=== PATIENT | male | born 1990 | race Caucasian/White ===

== ENCOUNTER 2019-03-27 22:29 | Emergency (ER) | payer MEDICAID, SELFPAY ==
[2019-03-27 22:30] VITALS: BP 155/91; PULSE 90; RESP 18; TEMP 36.8; O2SAT 97; BMI 29.7
--- NOTE | 2019-03-27 22:41 | CT_ITS ---
STUDY: CT ABDOMEN AND PELVIS WITHOUT CONTRAST REASON FOR EXAM: Male, 28 years old. Left flank pain radiating to groin. RADIATION DOSAGE (If Supplied By Facility): CTDIvol = ( 10.40 ) mGy, DLP = ( ) mGycm TECHNIQUE: Transaxial images were obtained from the dome of the diaphragm to the symphysis pubis without oral contrast, and without intravenous contrast. Sagittal and coronal images were reconstructed. Individualized dose optimization techniques were used for this CT. COMPARISON: None. FINDINGS: The visualized lung bases are unremarkable. The visualized portions of the heart are within normal limits. Normal liver. Normal gallbladder and extrahepatic biliary system. Normal spleen. Normal pancreas. Normal bilateral adrenal glands. Normal right kidney without hydronephrosis, renal or ureteral stones. Size of the left kidney with mild caliectasis and a prominent renal pelvis without ureteral distention, renal or ureteral stones. Normal visualized stomach. Normal small intestine. Normal colon. The appendix is visualized and appears normal. Normal abdominal aorta. Normal inferior vena cava. Normal retroperitoneum. Normal urinary bladder. Normal abdominal wall. Normal osseous structures. CT/Abdomen/Pelvis without Cont IMPRESSION: Mild caliectasis of the left kidney and a mildly dilated left renal pelvis without ureteral dilatation. Negative for renal, ureteral or bladder stones. Negative for perinephric or periureteral stranding. Findings suggest a mild UPJ deformity of the left kidney. Normal right kidney. Unremarkable urinary bladder. Otherwise normal abdomen and pelvic CT exam. Electronically Signed: Kallie Wheeler MD at 23:33 EST , Service support ,
--- NOTE | 2019-03-27 22:42 | ED.VIS.GEN ---
History of Present Illness Chief Complaint: Flank Pain Detail of Chief Complaint: Left lower quadrant pain Informant: Patient Onset: Today Context: Gradual Onset Timing: Waxes and wanes Current Severity: Mild Maximum Severity: Moderate Narrative: Patient presents with waxing and waning pain to the left lower quadrant for the past hour or so. He states when the pain got most severe he was slightly short of breath and had some tightness across the center of his chest. He has had mild recent cough and runny nose. He denies fever or chills. He denies nausea or vomiting. He said normal bowel movements and normal urination. Patient has a history of reflux disease and takes [id number] Prilosec. Patient denies any abdominal surgeries. - Past Medical History (1) GERD (gastroesophageal reflux disease) Status: Chronic Past Medical History - Allergies and Home Meds Allergies/Adverse Reactions: Allergies No Known Allergies Allergy (Verified 03/27/19 22:32) Primary Care Physician: Temi An MD [Primary Care Provider] - Prior records reviewed: Yes Lives: With Family Smoking Status: Never smoker Review of Systems General: Denies: Chills, Fever Eyes: Denies: Visual changes - bilaterally ENT: Denies: Bilateral ear pain Cardiovascular: Reports: Chest pain Respiratory: Reports: Dyspnea, Cough Gastrointestinal: Reports: Abdominal pain. Denies: Nausea, Vomiting, Diarrhea Genitourinary: Denies: Dysuria, Hematuria Musculoskeletal: Denies: Swelling, Extremity Pain Skin: Denies: Rash Neurological: Denies: Headache Hematologic: Denies: Easy bruising Allergy: Denies: Uticaria Physical Exam Vital Signs/Narrative: Vital Signs Temp Pulse Resp BP Pulse Ox 03/27/19 22:30 98.2 F 90 18 155/91 H 97 Inital Vital Signs reviewed: Yes General: Well nourished, Well developed Head: Normocephalic ENT: Moist mucous membranes Neck: Supple Cardiovascular: Regular rate, Regular rhythm Respiratory: No distress, CTA bilaterally, Chest tenderness - Mild tenderness of the lower sternum. Abdomen: Soft, Tender - Mild tenderness to palpation left lower quadrant. No guarding or rebound., Hypoactive bowel sounds. Negative for: Guarding, Rebound tenderness Back: CVA tenderness - Mild tenderness to the left CVA region. Extremities: Nontender Skin: Normal color, No rash Neurological: Alert, Oriented x3 Psychological: Normal affect Diagnostic/Tx/Re-eval Impressions Abdomen/Pelvis CT 03/27/19 22:41 IMPRESSION: Mild caliectasis of the left kidney and a mildly dilated left renal pelvis without ureteral dilatation. Negative for renal, ureteral or bladder stones. Negative for perinephric or periureteral stranding. Findings suggest a mild UPJ deformity of the left kidney. Normal right kidney. Unremarkable urinary bladder. Otherwise normal abdomen and pelvic CT exam. Electronically Signed: Kallie Wheeler MD at 23:33 EST , Service support , 03/27/19 22:41 Abdomen/Pelvis without Cont [CT] Stat 03/27/19 23:05 Chest PA and Lateral [RAD] Stat No acute disease per ED physician read. Laboratory Results 03/27/19 03/27/19 03/27/19 22:49 22:49 22:49 WBC 10.1 RBC 5.31 Hgb 16.0 Hct 47.7 MCV 89.8 MCH 30.1 MCHC 33.5 RDW Std Deviation 42.8 RDW Coeff of Ben 12.9 Plt Count 228 MPV 11.9 Immature Gran % (Auto) 0.400 Neut % (Auto) 67.4 Lymph % (Auto) 20.5 [place] % (Auto) 8.0 Eos % (Auto) 3.3 Baso % (Auto) 0.4 Absolute Neuts (auto) 6.8 Absolute Lymphs (auto) 2.06 Nucleated RBC % 0 Sodium 140 Potassium 3.7 Chloride 107 Carbon Dioxide 24.0 Anion Gap 9 BUN 13 Creatinine 1.15 Estim Creat Clear Calc 83.93 Est GFR (MDRD) Af Amer 98 Est GFR (MDRD) Non-Af 81 BUN/Creatinine Ratio 11.3 Glucose 91 Calcium 8.8 Urine Color Yellow Urine Clarity Clear Urine pH 6.0 Ur Specific [place] 1.015 Urine Protein 15 H Urine Glucose (UA) Normal Urine Ketones Negative Urine Occult Blood Negative Urine Nitrite Negative Urine Bilirubin Negative Urine Urobilinogen 1 H Ur Leukocyte Esterase Negative Urine RBC 0-5 SEEN Urine WBC 0 SEEN Ur Squamous Epith Cells 0-5 SEEN Urine Bacteria RARE Urine Mucus 0 SEEN - EKG Initial EKG Interpretation: Sinus Rhythm - Sinus 87 with no acute ischemia. - Medical Decision Making Patient was given Toradol and IV fluids. On repeat evaluation he is resting comfortably. Test results are discussed with patient and mother at bedside. At this time pain is improved. He now tells me that he has had pain along his left hip area for quite some time. Patient be given anti-inflammatories. I did discuss with him the changes noted to his left kidney on CAT scan, but concern is that this is more of a long-standing issue and not the cause of his acute pain. He will be given information for urology follow-up as needed. ED Disposition - Plan for ED Patient: Disposition: Home or Assisted Living Diagnosis: Left flank pain Instructions: FLANK PAIN, Uncertain Cause Prescriptions: Naproxen [Naprosyn] 500 mg PO BID PRN PRN #20 tablet PRN Reason: Pain Score 1-10/10 Referrals: Temi An MD [Primary Care Provider] - 1 Week if not improving Stevenson Guerrero MD [STAFF PHYSICIAN] - As Needed
--- NOTE | 2019-03-27 22:44 | EKG12_ITS ---
Test Reason : FLANK PAIN Blood Pressure : / mmHG Vent. Rate : 087 BPM Atrial Rate : 087 BPM P-R Int : 148 ms QRS Dur : 100 ms QT Int : 344 ms P-R-T Axes : 037 -23 -08 degrees QTc Int : 413 ms Normal sinus rhythm Minimal voltage criteria for LVH, may be normal variant Borderline ECG Confirmed by HAN ALARCON, RAZA ([id number]), visual effects editor MANDY CRESPO ([id number]) on 03/31/2019 11:58:24 AM Referred By: CHASITY Confirmed By:RAZA SHORT MD
[2019-03-27] MEDS: 0.9% Normal Saline 1,000 ML 150 ML IV (22:53)
[2019-03-27] MEDS: Ketorolac 30 MG/ML Syringe IV (22:54)
[2019-03-27 22:56] LABS: Mucous, Urine 0 SEEN /hpf (<or=2+); White Blood Cells 0 SEEN /hpf (0-5)
[2019-03-27 22:57] LABS: Absolute Lymphocyte Count 2.06 X10^3/uL (0.83-4.51); Absolute Neutrophil Count 6.8 X10^3/uL (2.0-7.7); Basophil# 0.04 X10^3/uL; Basophil% 0.4 % (0-1); Eosinophil# 0.33 X10^3/uL; Eosinophils% 3.3 % (0-5); Hematocrit 47.7 % (40-54); Lymphocyte # 2.06 X10^3/ul (4.0); Lymphocyte % 20.5 % (19-41); Mean Corp Hgb Conc 33.5 g/dL (32-36); Mean Corpuscular Hgb 30.1 pg (27.0-32.0); Mean Corpuscular Volume 89.8 fL (80-94); Mean Platelet Vol. 11.9 fl (6.2-12.0); NRBC Flagged by Analyzer 0 % (0-5); Neutrophil # 6.78 X10^3/uL (2.7-7.7); Neutrophil % 67.4 % (47-70); Platelet Count 228 K/mm3 (150-450); RBC Distribution Width CV 12.9 % (11.6-14.6); RBC Distribution Width SD 42.8 fl (35.1-43.9); Red Blood Count 5.31 M/mm3 (4.6-6.2); White Blood Count 10.1 K/mm3 (4.4-11.0)
[2019-03-27 22:58] LABS: Color, Urine Yellow (Yellow); Glucose, Dipstick Normal (Normal); Ketone-Dipstick Negative (Negative); Leukocyte Esterase-Dipstick Negative /ul (Negative); Nitrite-Dipstick Negative (Negative); Occult Blood-Urine Negative /ul (Negative); Protein-Dipstick 15 mg/dl (Negative); Specific Gravity, Urine 1.015 (1.002-1.030); Urine Bilirubin Dipstick Negative (Negative); Urine Clarity Clear (Clear); Urine Urobilinogen 1 mg/dl (Normal)
--- NOTE | 2019-03-27 23:05 | RAD_ITS ---
STUDY: X-RAY CHEST REASON FOR EXAM: Male, 28 years old. Shortness of breath, cough and left flank pain. TECHNIQUE: 2 views COMPARISON: Prior chest radiograph May 05, 2015 FINDINGS: The lungs are clear and expanded. There is no demonstrated pleural abnormality. Normal size heart. Normal mediastinum and gloria. Normal visualized pulmonary arteries. Normal visualized aortic arch and descending thoracic aorta. Normal visualized thoracic spine. Normal visualized ribs, clavicles, and shoulders. There is no demonstrated abnormality of the visualized soft tissue structures of the upper abdomen. RAD/Chest PA and Lateral IMPRESSION: Normal x-ray examination of the chest. Electronically Signed: Kallie Wheeler MD at 23:51 EST , Service support ,
[2019-03-27 23:09] LABS: Bacteria RARE /hpf (None Seen); Red Blood Cells-Urine 0-5 SEEN /hpf (0-5); Squamous Epithelial Cells - UA 0-5 SEEN /hpf (0-5)
[2019-03-27 23:14] LABS: Anion Gap 9 (5-15); BUN 13 mg/dL (7-18); BUN/Creat Ratio 11.3 RATIO (10-20); Calcium,Total 8.8 mg/dL (8.5-10.1); Chloride 107 mmol/L (98-107); Creatinine, Serum 1.15 mg/dL (0.70-1.30); EST Glomerular Filtration Rate 81 mL/min (>60); Est Glom Filt Rate - Afr Amer 98 mL/min (>60); Estimated Creatinine Clearance 83.93 ml/min; Glucose 91 mg/dL (74-106); Potassium 3.7 mmol/L (3.5-5.1); Sodium Level 140 mmol/L (136-145)
[2019-03-28 00:34] VITALS: RESP 14
== END 2019-03-28 00:35 | disposition home or self-care (01) ==
PROVIDERS: Emergency Provider Emergency Medicine; Family Provider Internal Medicine; PCP Internal Medicine
DX: R10.9 Unspecified abdominal pain (principal); K21.9 Gastro-esophageal reflux disease without esophagitis; Z79.899 Other long term (current) drug therapy
CPT/HCPCS: 71046; 74176; 80048; 81001; 85025; 93005; 96361; 96374; 99283; J7030; A4216

== ENCOUNTER 2020-03-06 04:41 | Emergency (ER) | payer MEDICAID, SELFPAY ==
[2020-03-06 04:42] VITALS: BP 172/92; PULSE 98; RESP 16; TEMP 36.6; O2SAT 97; BMI 29.0
--- NOTE | 2020-03-06 04:56 | ED.DCSUM_ITS ---
- ER Visit Summary Date of Service: 03/06/20 Chief Complaint: Possible overdose History of Present Illness: The patient is a 29 M who presents with a possible accidental overdose that occurred tonight. Patient states he woke up and was not sure if he took his Flomax last night. Patient states he took another dose of Flomax when he woke up. Patient states he has been feeling dizzy. Patient also admits to some pain in his left flank for the past month. Patient states it is worse with bending. Patient states he improves with Tylenol. Patient denies any fevers or chills. Patient denies any dysuria or hematuria. Physical Examination: Vital signs are stable. Patient is afebrile. Patient is in no acute distress. Oral mucosa is pink and moist. Neck is supple. Trachea is midline. There is no JVD noted. Heart was regular rate and rhythm. Lungs are clear and equal bilaterally. Abdomen is soft. Bowel sounds are normal. There is mild left upper quadrant and left flank tenderness. There is no rebound or guarding noted. Skin is warm dry. Cranial nerves II through XII are intact. There are no focal motor or sensory deficits noted. Extremities are intact. There is no calf tenderness or edema. Test Results: Urinalysis was obtained and was within normal limits. Emergency Department Course and Treatment: Patient was advised that an extra dose of Flomax is not dangerous. Patient was instructed to follow-up with his primary care physician in 5 to 7 days. Patient understood and was agreeable with the plan. All questions were answered. Disposition: Discharge home Impression: 1. Left flank pain 2. Accidental overdose This note was generated with [employer] dictation software. It may contain incorrect words, spelling, and punctuation that were not noted in review of the chart prior to signing ED Disposition - Plan for ED Patient: Disposition: Home or Assisted Living Diagnosis: Left flank pain, Accidental overdose Instructions: ED Flank Pain Uncertain Cause, ED Accidental Ingestion Nontoxic Adult Referrals: Temi An MD [Primary Care Provider] - 3-5 Days
[2020-03-06 05:12] LABS: Bacteria 0 SEEN /hpf (None Seen); Mucous, Urine 0 SEEN /hpf (<or=2+); Red Blood Cells-Urine 0 SEEN /hpf (0-5); Squamous Epithelial Cells - UA 0 SEEN /hpf (0-5); White Blood Cells 0 SEEN /hpf (0-5)
[2020-03-06 05:28] LABS: Color, Urine Straw (Yellow); Glucose, Dipstick Normal (Normal); Ketone-Dipstick Negative (Negative); Leukocyte Esterase-Dipstick Negative /ul (Negative); Nitrite-Dipstick Negative (Negative); Occult Blood-Urine Negative /ul (Negative); Protein-Dipstick Negative (Negative); Urine Bilirubin Dipstick Negative (Negative); Urine Clarity Sl. Cloudy (Clear); Urine Urobilinogen Normal (Normal)
[2020-03-06 06:06] VITALS: BP 135/68; PULSE 72; RESP 16; O2SAT 100
--- NOTE | 2020-03-06 06:07 | ED.RN ---
PT MENTIONS HE HAS LOTS OF ANXIETY. CARD GIVEN FOR 89 AND CRISIS. EMOTIONAL SUPPORT GIVEN.
== END 2020-03-06 06:07 | disposition home or self-care (01) ==
PROVIDERS: Emergency Provider Emergency Medicine; PCP Internal Medicine
DX: R10.9 Unspecified abdominal pain (principal); T44.6X1A Poisoning by alpha-adrenoreceptor antagonists, accidental (unintentional), initial encounter
CPT/HCPCS: 81001; 99282

== ENCOUNTER 2020-12-31 14:35 | Observation (INO) | payer MEDICAID, SELFPAY ==
[2020-12-31] VITALS (10 sets, daily range): BP systolic 127–166; BP diastolic 78–104; PULSE 71–101; RESP 16–20; TEMP 36.4–37.2; O2SAT 96–99; BMI 32.5; BMI 32.8
--- NOTE | 2020-12-31 15:19 | EKG12_ITS ---
Test Reason : CP Blood Pressure : / mmHG Vent. Rate : 102 BPM Atrial Rate : 102 BPM P-R Int : 138 ms QRS Dur : 098 ms QT Int : 326 ms P-R-T Axes : 000 147 194 degrees QTc Int : 424 ms Sinus tachycardia Indeterminate axis ST & T wave abnormality, consider inferior ischemia Abnormal ECG Confirmed by MICHELE ALARCON, JUJU ([id number]), editor trade journal ANKITA MARTINEZ ([id number]) on 01/04/2021 8:36:19 AM Referred By: STEPHANIE Confirmed By:JAMES BAUTISTA MD
--- NOTE | 2020-12-31 15:20 | ED.VIS.CHEST ---
HPI History of Present Illness Chief Complaint: Chest Pain Detail of Chief Complaint: Chest pain that started 3 days ago Informant: patient Onset/Context/Timing Current Severity: 08/07 Narrative Narrative: Patient presents to the emergency department chief complaint of chest pain and shortness of breath that started 3 days ago. Patient states that 3 days ago while at work he was pushing a car to another weighing and on the way back to the kitchen he thinks he may have passed out on top of the cart. He has been complaining of discomfort in the left chest that he describes as pressure-like. Patient states that yesterday he felt okay but the pain came back today. Patient states pain is worse with deep breath and movement. He has not had pain like this before. Patient seems to think the pain is worse with activity. No family history of heart disease. Patient has no history of PE or DVT. He denies recent travel or surgery. He denies fever or recent illness. Patient does have a slight dry cough x2 days however he does have history of allergies and he believes its related to seasonal allergies. Patient had a negative Covid test yesterday. Prior Similar Symptoms: No PFSH PFSH Medical History (Updated 12/31/20 @ 16:[address] Farzad Jade, DO) Kidney stones Home Medications NK 12/31/20 [History Last Taken Unknown] Allergy/AdvReac Type Severity Reaction Status Date / Time No Known Allergies Allergy Verified 12/31/20 15:19 Social History Smoking Status: Never smoker ROS ROS ED Review of Systems ROS Unobtainable: other Constitutional Constitutional ED: Reports lethargy; Denies chills, fever(s), sweats or weight loss Eyes Eyes: Denies blurry vision, change in vision or diplopia ENT ENT ED: Denies rhinorrhea or sore throat Cardiovascular Cardiovascular: Reports chest pain; Denies orthopnea or racing heartbeat Respiratory/Chest Respiratory/Chest: Reports cough, dyspnea and dyspnea on exertion; Denies orthopnea or sputum Gastrointestinal Gastrointestinal: Denies abdominal pain, diarrhea, nausea or vomiting Genitourinary Genitourinary ED: Denies dysuria, hematuria or urinary frequency Musculoskeletal Musculoskeletal: Denies arthralgias, back pain, myalgias or neck pain Integumentary Denies abscess, Abrasions or rash Neurologic Neurologic: Denies headache(s) or weakness Psychiatric Psychiatric: Denies anxiety, depression or suicidal thoughts Endocrine Endocrinology: Denies polydipsia, polyphagia or polyuria Hematologic/Lymphatic Hematologic/Lymphatic: Denies easy bleeding, easy bruising or lymphadenopathy Allergic/Immunologic Allergic/Immunologic ED: Denies mouth swelling, tongue swelling or urticaria EXAM Physical Exam Const Vital Signs: 12/31/20 14:35 12/31/20 15:32 12/31/20 15:33 Temperature 98.8 F Temperature Source Temporal Pulse Rate 101 H Respiratory Rate 20 H Respiratory Effort Normal Non-Labored Blood Pressure 166/99 H Blood Pressure Mean 121 Pulse Ox 99 98 Oxygen Delivery Method Room Air Room Air Positive well nourished and well developed General Appearance ED: well developed and NAD HEENT Reports TM's clear and moist mucous membranes normocephalic and atraumatic; Negative for trauma or tenderness Tympanic Membrane ED: Yes TM's clear Eyes PERRL and EOMs intact bilaterally General Eye ED: Negative for pale conjunctiva or scleral icterus Neck no lymphadenopathy, supple and no JVD General: Negative for tenderness Chest Wall Chest Narrative: Patient has tenderness palpation of the left anterior chest wall that seems to reproduce his pain. There is no ecchymosis or bruising noted. There is no soft tissue swelling. Chest: tenderness Resp normal respiratory effort and clear to auscultation bilaterally Effort and Inspection: Negative for respiratory distress or pain with movement Auscultation: Negative for rhonchi, wheezes or diminished lung sounds Cardio regular rate, regular rhythm, S1 normal heart sound, S2 normal heart sound and no murmurs Peripheral Pulses: pulses 2+ throughout GI normal to inspection, nondistended, normoactive bowel sounds, soft to palpation, non-tender, non-distended and no masses Back/Spine no CVA tenderness and no thoracic nor lumbar tenderness Extremity normal to inspection General Extremety ED: Negative for edema General Extremity: Negative for edema Neuro oriented x3, CN's II-XII intact bilaterally, no sensory deficits noted and gait normal Sensorium / Orientation: awake, alert, oriented to person, oriented to place and oriented to time Motor Exam: strength 5/5 throughout and strength abnormal Psych mental status grossly normal Skin no rashes or lesions noted and no wounds Heart Score History: Moderately Suspicious ECG: Nonspecific Repolarization Age: </= 45 years Risk Factors: 1 or 2 Risk Factors Troponin: </= Normal Limit Score: 3 MDM MDM MDM Narrative Medical decision making narrative: Case was discussed with photogrammetric stereo compiler on-call and he was able to review today's EKG as well as old EKG from 2019. It was recommended that patient be admitted for further work-up as he does have a markedly abnormal EKG. Patient had a normal D-dimer and normal sed rate as well as a normal troponin. Etiology of his chest pain is unclear however he does have Q waves in the lateral leads and there is concern he may have had an infarct within the last several days. Lab Data Attestation: I reviewed the patient's lab results. Labs: Laboratory Results - last 24 hr 12/31/20 12/31/20 12/31/20 15:26 15:26 15:26 WBC 6.3 RBC 5.22 Hgb 15.6 Hct 46.5 MCV 89.1 MCH 29.9 MCHC 33.5 RDW Std Deviation 40.8 RDW Coeff of Ben 12.4 Plt Count 228 MPV 11.2 Immature Gran % (Auto) 0.600 Neut % (Auto) 65.2 Lymph % (Auto) 22.2 [place] % (Auto) 7.7 Eos % (Auto) 3.8 Baso % (Auto) 0.5 Absolute Neuts (auto) 4.1 Absolute Lymphs (auto) 1.39 Nucleated RBC % 0 ESR 5 D-Dimer Quant (PE/DVT) 0.46 Sodium 137 Potassium 3.7 Chloride 105 Carbon Dioxide 28.0 Anion Gap 4 L BUN 9 Creatinine 0.97 Estim Creat Clear Calc 97.74 Est GFR (MDRD) Af Amer 118 Est GFR (MDRD) Non-Af 97 BUN/Creatinine Ratio 9.3 L Glucose 110 H Calcium 9.3 Troponin I High Sens 4 Radiography Chest X-Ray - ED: 1 View Diagnostic Testing: Radiology Impression Chest X-Ray 12/31/20 15:45 IMPRESSION: Normal x-ray examination of the chest. Electronically Signed: Pawel Beckman MD at 16:01 EDT Tel , Service support , 1 view chest x-ray obtained interpreted by myself as no acute disease process. Radiology in agreement. EKG Initial EKG: Comments: Sinus rhythm with a ventricular rate of 102 bpm with T wave inversions in lateral leads which are new when compared with prior Prior EKG tracings: available for review Prior: Changed Discharge Plan Dx/Rx/DC Orders Clinical Impression: Chest pain, Abnormal ECG Disposition Disposition: Acute Care Hospital [facility]
[2020-12-31 15:32] LABS: Absolute Lymphocyte Count 1.39 X10^3/uL (0.83-4.51); Absolute Neutrophil Count 4.1 X10^3/uL (2.0-7.7); Basophil# 0.03 X10^3/uL; Basophil% 0.5 % (0-1); Eosinophil# 0.24 X10^3/uL; Eosinophils% 3.8 % (0-5); Hematocrit 46.5 % (40-54); Hemoglobin 15.6 g/dL (13.0-16.5); Lymphocyte # 1.39 X10^3/ul (0.83-4.51); Lymphocyte % 22.2 % (19-41); Mean Corp Hgb Conc 33.5 g/dL (32-36); Mean Corpuscular Hgb 29.9 pg (27.0-32.0); Mean Corpuscular Volume 89.1 fL (80-94); Mean Platelet Vol. 11.2 fl (6.2-12.0); Monocyte# 0.48 X10^3/uL; Monocyte% 7.7 % (0-10); NRBC Flagged by Analyzer 0 % (0-5); Neutrophil # 4.08 X10^3/uL (2.7-7.7); Neutrophil % 65.2 % (47-70); Platelet Count 228 K/mm3 (150-450); RBC Distribution Width CV 12.4 % (11.6-14.6); RBC Distribution Width SD 40.8 fl (35.1-43.9); Red Blood Count 5.22 M/mm3 (4.6-6.2); White Blood Count 6.3 K/mm3 (4.4-11.0)
[2020-12-31 15:44] LABS: Erythrocyte Sedimentation Rate 5 mm/hr (0-20)
[2020-12-31 15:45] LABS: D-Dimer Quantitative (DVT/PE) 0.46 FEU/ug/m (0.27-0.49)
--- NOTE | 2020-12-31 15:45 | RAD_ITS ---
STUDY: X-RAY CHEST REASON FOR EXAM: Male, 30 years old. chest pain TECHNIQUE: Single AP portable view of the chest. COMPARISON: 03/27/2019 FINDINGS: The lungs are clear and expanded. There is no demonstrated pleural abnormality. Normal size heart. Normal mediastinum and gloria. Normal visualized pulmonary arteries. Normal visualized aortic arch and descending thoracic aorta. Normal visualized thoracic spine. Normal visualized ribs, clavicles, and shoulders. There is no demonstrated abnormality of the visualized soft tissue structures of the upper abdomen. RAD/Chest 1 View (Portable) IMPRESSION: Normal x-ray examination of the chest. Electronically Signed: Pawel Beckman MD at 16:01 EDT Tel , Service support ,
[2020-12-31] MEDS: Aspirin 81 MG TAB.CHEW 324 MG PO (15:49)
[2020-12-31] MEDS: 0.9% Normal Saline 1,000 ML 150 ML IV (15:49)
[2020-12-31 15:55] LABS: Anion Gap 4 (5-15); BUN 9 mg/dL (7-18); BUN/Creat Ratio 9.3 RATIO (10-20); Calcium,Total 9.3 mg/dL (8.5-10.1); Chloride 105 mmol/L (98-107); Creatinine, Serum 0.97 mg/dL (0.70-1.30); EST Glomerular Filtration Rate 97 mL/min (>60); Est Glom Filt Rate - Afr Amer 118 mL/min (>60); Estimated Creatinine Clearance 97.74 ml/min; Glucose 110 mg/dL (74-106); Potassium 3.7 mmol/L (3.5-5.1); Sodium Level 137 mmol/L (136-145); Troponin-I HS 4 pg/mL (3.0-78.0)
--- NOTE | 2020-12-31 16:53 | HP.PCM.HOS_ITS ---
HPI - General HPI Narrative MARIA GUADALUPE LOZADA, is a 30 M who presented to the emergency department at [facility] on 12/31/2020 with a chief complaint of chest pain. He reports that his chest pain started approximately 3 days ago. 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 He woke up lying on top of the cart for what he estimates being no longer than 5 minutes and was alert and oriented immediately. 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 He states that his symptoms have been fairly intermittent but he has noticed an increase shortness of breath specifically with exertion. He stated that when he does get his pain he has increased shortness of breath. His pain seems somewhat pleuritic in nature. He denies any associated radiation of pain other than to maybe he has axilla and denied any associated diaphoresis or nausea. His vitals were essentially stable other than elevated blood pressure in the emergency department. He was completely normal. A D-dimer was obtained secondary to the pleuritic nature of his pain was normal. A BMP was essentially normal. High-sensitivity troponin was obtained and was 4. His chest x-ray shows no acute processes. His EKG however shows new T wave inversions with Q waves in the inferior leads when compared to previous EKG. the ER physician discussed the case with cardiology who recommended admission for cardiac work-up. The patient's only significant risk factor is a family history in which his uncle had an MT at age 39. He is unclear on the specifics of this incident. [facility] Medical History Kidney stones Home Medications NK 12/31/20 [History Last Taken Unknown] Allergy/AdvReac Type Severity Reaction Status Date / Time No Known Allergies Allergy Verified 12/31/20 15:19 Family History (Updated 12/31/20 @ 16:[address] Gail Lai DO) Uncle Heart disease Had heart attack at age 39 Other Diabetes Hypertension Social History (Updated 12/31/20 @ 17:[address] Gail Lai DO) current occupational status: employed Smoking Status: Never smoker second hand exposure: Yes alcohol intake: never substance use type: does not use ROS Constitutional Constitutional: Reports weakness; Denies anorexia, change in weight, chills, fatigue, fever(s), malaise, night sweats or other Eyes Eyes: Denies blurry vision, change in eye color, change in vision, discharge from eye(s), double vision, erythema, eye pain, loss of vision or other ENT HEENT: Denies abnormal hearing, dysphagia, ear pain, epistaxis, headache(s), hearing loss, nasal congestion, nasal discharge, post nasal drip, sinus pressure, sore throat or other Cardiovascular Cardiovascular: Reports chest pain, dyspnea on exertion, lightheadedness and syncope; Denies claudication, edema, orthopnea, palpitations, paroxysmal nocturnal dyspnea, rapid heart rate or other Respiratory/Chest Respiratory/Chest: Reports shortness of breath with exertion; Denies cough, dys pnea, excessive phlegm production, hemoptysis, productive cough, shortness of breath at rest, wheezing or other Gastrointestinal Gastrointestinal: Denies abdominal pain, coffee ground emesis, constipation, diarrhea, dyspepsia, hematemesis, hematochezia, loose stools, melena, nausea, vomiting or other Genitourinary Genitourinary: Denies burning urination, difficulty urinating, dysuria, hematuria, nocturia, urinary frequency, urinary hesitancy, urinary incontinence, urinary urgency or other Musculoskeletal Musculoskeletal: Denies arthralgias, back pain, joint pain, joint stiffness, joint swelling, myalgias, neck pain or other Neurologic Neurologic: Denies abnormal gait, abnormal speech, confusion, disequilibrium, dizziness, focal weakness, headache(s), numbness, paresthesias, seizure-like activity, seizures, syncope, tingling, tremor(s) or other Psychiatric Psychiatric: Denies anxiety, depression, homicidal ideation, suicidal ideation or other Endocrine Endocrinology: Denies change in body appearance, cold intolerance, excessive sweating, heat intolerance, polydipsia, polyuria or other Hematologic/Lymphatic Hematologic/Lymphatic: Denies anemia, easy bleeding, easy bruising, lymphadenopathy or other Allergic/Immunologic Allergic/Immunologic: Denies rhinitis, hives, eczemia, asthma or other Vital Signs Vital Signs Vital Signs: 12/31/20 14:35 12/31/20 15:32 12/31/20 15:33 Temperature 98.8 F Temperature Source Temporal Pulse Rate 101 H Respiratory Rate 20 H Respiratory Effort Normal Non-Labored Blood Pressure 166/99 H Blood Pressure Mean 121 Pulse Ox 99 98 Oxygen Delivery Method Room Air Room Air 12/31/20 16:50 Temperature 97.6 F L Temperature Source Oral Pulse Rate 85 Respiratory Rate 17 Respiratory Effort Blood Pressure 160/104 H Blood Pressure Mean 122 Pulse Ox 96 Oxygen Delivery Method Room Air Weight Weight: 88.7 kg Body Mass Index (BMI) 32.5 Physical Exam Const alert, oriented x3 and no apparent distress Constitutional Narrative: Young middle-aged white male sitting up in bed, nontoxic, appears comfortable, affect is strange General Appearance: cooperative HEENT normocephalic, head/scalp atraumatic, hearing grossly normal bilaterally and moist oral mucous membranes HEENT Narrative: Significant seborrhea, Mallampati 2, no thrush, dentition fair Eyes PERRL, EOMs intact bilaterally and conjunctivae normal Neck no lymphadenopathy, supple, no JVD and no carotid bruits Resp normal respiratory effort, no retractions, no use of accessory muscles and clear to auscultation bilaterally Auscultation: Negative for crackles, rales, rhonchi or wheezes Cardio regular rate, regular rhythm, S1 normal heart sound, S2 normal heart sound, no murmurs, no rub, no gallops, no clicks and no JVD GI normal to inspection, nondistended, normoactive bowel sounds, soft to palpation, non-tender and non-distended; Negative for hepatosplenomegaly Extremity no clubbing, cyanosis or edema Peripheral Pulses: Yes pulses 2+ throughout Skin no rashes or lesions noted, no wounds, skin turgor normal, no jaundice, no petechiae and no mottling Neuro oriented x3, CN's II-XII intact bilaterally, moves all extremities and no focal motor deficits Neuro Narrative: Reflexes 3+ throughout upper lower extremities Sensorium / Orientation: awake, alert, oriented to person, oriented to place and oriented to time Speech: speech normal Psych Psych Narrative: Affect is somewhat strange but interaction Results Lab / Micro Data Attestation: I reviewed the patient's lab results. Result Diagrams: 12/31/20 15:26 12/31/20 15:26 Labs: Laboratory Results - last 24 hr 12/31/20 15:26: WBC 6.3, RBC 5.22, Hgb 15.6, Hct 46.5, MCV 89.1, MCH 29.9, MCHC 33.5, RDW Std Deviation 40.8, RDW Coeff of Ben 12.4, Plt Count 228, MPV 11.2, Immature Gran % (Auto) 0.600, Neut % (Auto) 65.2, Lymph % (Auto) 22.2, Posey % (Auto) 7.7, Eos % (Auto) 3.8, Baso % (Auto) 0.5, Absolute Neuts (auto) 4.1, Absolute Lymphs (auto) 1.39, Nucleated RBC % 0, ESR 5 12/31/20 15:26: Sodium 137, Potassium 3.7, Chloride 105, Carbon Dioxide 28.0, Anion Gap 4 L, BUN 9, Creatinine 0.97, Estim Creat Clear Calc 97.74, Est GFR (MDRD) Af Amer 118, Est GFR (MDRD) Non-Af 97, BUN/Creatinine Ratio 9.3 L, Glucose 110 H, Calcium 9.3, Troponin I High Sens 4 12/31/20 15:26: D-Dimer Quant (PE/DVT) 0.46 Radiology Impression Chest X-Ray 12/31/20 15:45 IMPRESSION: Normal x-ray examination of the chest. Electronically Signed: Pawel Beckman MD at 16:01 EDT Tel , Service support , Assessment & Plan Assessment/Plan (1) Chest pain: (2) Abnormal ECG: (3) Elevated blood pressure reading: PLAN: Chest pain -Would suspect noncardiac except patient has EKG changes -EKG shows newly inverted T waves in the inferior leads with Q waves present -Initial troponin negative -D-dimer negative -Check echocardiogram and stress test in a.m. -Check lipids -Check A1c -High intensity dose statin -Start metoprolol 50 mg twice daily -Aspirin Abnormal EKG -See above Elevated blood pressure readings -Patient without history of hypertension although has had significant elevations in blood pressure in the emergency department -We will start metoprolol 50 mg twice daily given chest pain -May need discharged on blood pressure medications if blood pressures remain elevated DVT prophylaxis -SCDs -Lovenox CODE STATUS -Full code Charges/Coding Visit Charges Inpatient E&M: 24953 Init Hosp L2
--- NOTE | 2020-12-31 17:10 | ECHOD_ITS ---
Reason For Study: CHEST PAIN Procedure This was a 2D Doppler, Color Flow transthoracic echocardiogram. Exam performed portable in patient room. Left Ventricle Normal LV size. The estimated ejection fraction is 55 %. Normal diastology for age. No regional wall motion abnormalities noted. Right Ventricle Normal RV size. Normal systolic function. Atria Normal left atrium. Normal right atrium. No doppler evidence for ASD. Mitral Valve There is no mitral valve stenosis. Trivial mitral valve insufficiency. Tricuspid Valve There is no tricuspid stenosis. Unable to estimate RV systolic pressure due to inadequate jet, pulmonary artery pressure probably normal. Aortic Valve Trisinus/trileaflet aortic valve. There is no aortic stenosis. No aortic valve insufficiency. Pulmonic Valve There is no pulmonic valvular stenosis. No pulmonic valve insufficiency. Great Vessels Normal aortic root. Pericardium/Pleural No pericardial effusion. MMode/2D Measurements & Calculations LVIDd: 4.8 cm IVSd: 0.83 cm Ao root diam: 2.9 cm LVIDs: 2.8 cm LVPWd: 0.82 cm RVDd: 3.3 cm FS: 41.2 % LAV(MOD-bp): 39.8 ml LA A4 area: 16.0 cm2 LA dimension(2D): 3.7 cm LAV(MOD-bp) Indexed: 20.2 ml/m2 LAV(MOD-sp2): 34.3 ml LAV(MOD-sp4): 44.2 ml RA A4 area: 11.2 cm2 Time Measurements MV dec time: 0.16 sec Doppler Measurements & Calculations MV E max farrukh: 81.4 cm/sec Lat Peak E' Farrukh: 11.7 cm/sec Med Peak E' Farrukh: 7.9 cm/sec MV A max farrukh: 65.2 cm/sec E/E' lat: 7.0 E/E' med: 10.3 MV E/A: 1.2 Ao V2 max: 123.1 cm/sec LV V1 max: 95.5 cm/sec PA V2 max: 91.8 cm/sec Ao max P.1 mmHg LV V1 max P.7 mmHg ECHO/Echo Complete Interpretation Summary The estimated ejection fraction is 55 %. Trivial mitral valve insufficiency. Ordering Physician: Gail Lai Referring Physician: Temi An Performed By: An Ram, MARK, RVT
--- NOTE | 2020-12-31 17:10 | EKG12_ITS ---
Test Reason : AM EKG Blood Pressure : / mmHG Vent. Rate : 073 BPM Atrial Rate : 073 BPM P-R Int : 150 ms QRS Dur : 110 ms QT Int : 394 ms P-R-T Axes : 031 -21 004 degrees QTc Int : 434 ms Normal sinus rhythm with sinus arrhythmia Normal ECG Confirmed by TARA ALARCON, FEDERICO ([id number]), proposal editor ANKITA MARTINEZ ([id number]) on 01/05/2021 9:34:24 AM Referred By: DR BURROWS Confirmed By:FEDERICO PACHECO MD
[2020-12-31 18:03] LABS: Troponin-I HS 4 pg/mL (3.0-78.0)
[2020-12-31] MEDS: Metoprolol Tartrate 50 MG Tablet PO (19:23)
[2020-12-31] MEDS: Atorvastatin Calcium 80 MG Tablet PO (19:24)
[2020-12-31 21:36] LABS: Troponin-I HS 4 pg/mL (3.0-78.0)
[2020-12-31] MEDS: Loratadine 10 MG Tablet PO (21:53)
[2020-12-31] MEDS: Pantoprazole Sodium 20 MG Tablet PO (21:53)
--- NOTE | 2020-12-31 23:06 | PCS.PANDOC ---
PANDEMIC DOCUMENTATION INITIATED: Date: 12/13/2020 Time: 190
[2021-01-01] VITALS (9 sets, daily range): BP systolic 125–139; BP diastolic 70–94; PULSE 70–90; RESP 16; TEMP 36.5–37; O2SAT 95–98
[2021-01-01] MEDS: Aspirin E.C. 81 MG Tablet PO (05:33)
--- NOTE | 2021-01-01 05:55 | EKG12_ITS ---
Test Reason : Blood Pressure : / mmHG Vent. Rate : 086 BPM Atrial Rate : 086 BPM P-R Int : 138 ms QRS Dur : 110 ms QT Int : 362 ms P-R-T Axes : 038 -27 002 degrees QTc Int : 433 ms Normal sinus rhythm with sinus arrhythmia Poor R wave progression Confirmed by TARA ALARCON, FEDERICO ([id number]), supervising editor trailer ANKITA MARTINEZ ([id number]) on 01/05/2021 9:34:39 AM Referred By: MARKOS Confirmed By:FEDERICO PACHECO MD
[2021-01-01 06:18] LABS: Absolute Lymphocyte Count 2.21 X10^3/uL (0.83-4.51); Absolute Neutrophil Count 6.2 X10^3/uL (2.0-7.7); Basophil# 0.03 X10^3/uL; Basophil% 0.3 % (0-1); Eosinophil# 0.22 X10^3/uL; Eosinophils% 2.3 % (0-5); Hematocrit 45.9 % (40-54); Hemoglobin 15.4 g/dL (13.0-16.5); Lymphocyte # 2.21 X10^3/ul (0.83-4.51); Lymphocyte % 23.2 % (19-41); Mean Corp Hgb Conc 33.6 g/dL (32-36); Mean Corpuscular Hgb 30.6 pg (27.0-32.0); Mean Corpuscular Volume 91.1 fL (80-94); Mean Platelet Vol. 11.3 fl (6.2-12.0); Monocyte% 8.4 % (0-10); NRBC Flagged by Analyzer 0 % (0-5); Neutrophil % 65.3 % (47-70); Platelet Count 247 K/mm3 (150-450); RBC Distribution Width CV 12.8 % (11.6-14.6); RBC Distribution Width SD 42.5 fl (35.1-43.9); Red Blood Count 5.04 M/mm3 (4.6-6.2); White Blood Count 9.5 K/mm3 (4.4-11.0)
[2021-01-01 08:14] LABS: Hemoglobin A1c 5.5 % (3.8-5.6)
[2021-01-01 08:18] LABS: AST(SGOT) 51 U/L (15-37); Alanine Aminotransfer ALT/SGPT 130 U/L (16-61); Alkaline Phosphatase 54 U/L (45-117); Anion Gap 4 (5-15); BUN 13 mg/dL (7-18); BUN/Creat Ratio 13.3 RATIO (10-20); Chloride 106 mmol/L (98-107); Cholesterol 235 mg/dL (200); Creatinine, Serum 0.98 mg/dL (0.70-1.30); EST Glomerular Filtration Rate 96 mL/min (>60); Est Glom Filt Rate - Afr Amer 116 mL/min (>60); Estimated Creatinine Clearance 96.75 ml/min; Globulin 4.2 g/dL (2.2-4.2); Glucose 101 mg/dL (74-106); High Density Lipoprotein 36 mg/dL; Magnesium 2.6 mg/dL (1.6-2.6); Phosphorus 3.9 mg/dL (2.5-4.9); Potassium 3.6 mmol/L (3.5-5.1); Protein, Total 8.2 g/dL (6.4-8.2); Sodium Level 137 mmol/L (136-145); Thyroid Stim Hormone (TSH) 3.53 uIU/mL (0.358-3.74); Triglycerides 152 mg/dL; Very Low Density Lipoprotein 30 mg/dL (5-40)
[2021-01-01] MEDS: Tamsulosin HCl 0.4 MG Capsule PO (10:09)
[2021-01-01] MEDS: Loratadine 10 MG Tablet PO (10:09)
[2021-01-01] MEDS: Metoprolol Tartrate 50 MG Tablet PO (10:09)
--- NOTE | 2021-01-01 11:07 | PCM.DC ---
Discharge Instructions Diet Discharge Diet: No restrictions Activity Discharge Activity: Return to Normal Activity Weight Bearing Status: Weight bearing as tolerated Dressing / Incision Call your doctor if you observe: Fever of 101 or Higher, Numbness or Tingling, Shortness of breath, Dizziness, Chest pain, Increased palpitations (irregular heartbeat) and Calf discomfort Follow Up Care Please Follow Up With: Primary care provider When: Within the next two weeks. Test Results: Test results from this visit will be discussed in further detail at your follow-up appointment, if applicable. Discharge Plan Admission Admit Date/Time: 12/31/20 16:41 Attending Provider: Ramon Bundy Primary Care Provider: Temi An Instructions Patient Instructions: ED Chest Pain, Noncardiac Discharge Orders/Prescriptions Prescriptions: Continued tamsulosin 0.4 mg capsule 0.4 mg PO DAILY RF: 0 omeprazole magnesium [Prilosec OTC] 20 mg Tablet,Delayed Release (Dr/Ec) 20 mg PO QHS RF: 0 Zyrtec 10 mg Capsule 10 mg PO DAILY RF: 0 levocetirizine [Xyzal] 5 mg Tablet 5 mg PO QPM RF: 0 Referrals / Follow Up: Temi An MD [Primary Care Provider] - Within 2 Weeks Disposition Disposition (needs filled in before D/C Order can be placed): Home, Self Care
--- NOTE | 2021-01-01 13:29 | DS.PCM_ITS ---
Documented by User: Valdo ROSALES 01/01/21 17:01 Providers Date of Admission: 12/31/20 Primary Care Physician: Dr. Temi An MD Reason For Visit: CHEST PAIN Diagnosis Discharge Diagnosis (1) Chest pain: Status: Acute Code(s): R07.9 - Chest pain, unspecified (2) Abnormal ECG: Status: Acute Code(s): R94.31 - Abnormal electrocardiogram [ECG] [EKG] (3) Elevated blood pressure reading: Status: Acute Code(s): R03.0 - Elevated blood-pressure reading, without diagnosis of hypertension Medications at Discharge Home Medications Zyrtec 10 mg PO DAILY 12/31/20 levocetirizine [Xyzal] 5 mg PO QPM 12/31/20 omeprazole magnesium [Prilosec OTC] 20 mg PO QHS 12/31/20 tamsulosin 0.4 mg PO DAILY 12/31/20 Hospital Course Procedures 2-D Echocardiogram and Stress test Summary of Care Provided Minutes Spent on Discharge: 35 Hospital Course: Patient is to discharge home and follow-up with primary care provider within the next 2 weeks. No home health care needs or additional the rapies identified. 1) chest pain/ACS rule out Troponins, D-dimer and A1c are all within normal limits. EKG on admission did demonstrate new T wave inversions with Q waves in the inferior leads. Stress test did not demonstrate any evidence of significant ischemia or infarction. Echocardiogram showed an estimated EF of 55% and trivial mitral valve insufficiency. Etiology of patient's chest pain likely not cardiac related. Patient is to follow-up with primary care provider as above. 2) Elevated blood pressure Blood pressure was elevated over 150 systolic on admission. Has been stable since and is within normal limits. Patient has been working with his primary care provider on initiation of medication. Patient should follow with primary care provider as above. Patient seen by Valdo Black PA-C, under the supervision of Dr. Bundy. Physical Exam Narrative Patient is a 30-year-old male comfortably resting in bed, alert and orient x3. Patient denies development of any new chest pain since admission. Denies chest pain, shortness of breath, palpitations, hemoptysis, sputum production, fever, chills, N/V/D. Const alert, oriented x3 and no apparent distress HEENT normocephalic, head/scalp atraumatic and hearing grossly normal bilaterally Eyes PERRL, EOMs intact bilaterally and conjunctivae normal Neck no lymphadenopathy, supple and no JVD Resp normal respiratory effort, no retractions, no use of accessory muscles and clear to auscultation bilaterally Cardio regular rate, regular rhythm, no murmurs and no JVD GI normal to inspection, nondistended, normoactive bowel sounds, soft to palpation and non-tender Extremity normal to inspection, full ROM and no clubbing, cyanosis or edema Skin no rashes or lesions noted, no wounds and skin turgor normal Neuro CN's II-XII intact bilaterally Psych affect normal Weight / BMI Weight Weight: 197 lb 8.547 oz Body Mass Index (BMI) 32.8 ABG / Lab / Microbiology Data Result Diagrams: 01/01/21 05:56 01/01/21 05:56 Laboratory: Laboratory Results - last 24 hr 12/31/20 15:26: WBC 6.3, RBC 5.22, Hgb 15.6, Hct 46.5, MCV 89.1, MCH 29.9, MCHC 33.5, RDW Std Deviation 40.8, RDW Coeff of Ben 12.4, Plt Count 228, MPV 11.2, Immature Gran % (Auto) 0.600, Neut % (Auto) 65.2, Lymph % (Auto) 22.2, [place] % (Auto) 7.7, Eos % (Auto) 3.8, Baso % (Auto) 0.5, Absolute Neuts (auto) 4.1, Absolute Lymphs (auto) 1.39, Nucleated RBC % 0, ESR 5 12/31/20 15:26: Sodium 137, Potassium 3.7, Chloride 105, Carbon Dioxide 28.0, Anion Gap 4 L, BUN 9, Creatinine 0.97, Estim Creat Clear Calc 97.74, Est GFR (MDRD) Af Amer 118, Est GFR (MDRD) Non-Af 97, BUN/Creatinine Ratio 9.3 L, Glucose 110 H, Calcium 9.3, Troponin I High Sens 4 12/31/20 15:26: D-Dimer Quant (PE/DVT) 0.46 12/31/20 17:35: Troponin I High Sens 4 12/31/20 21:05: Troponin I High Sens 4 01/01/21 05:56: Hemoglobin A1c 5.5 01/01/21 05:56: WBC 9.5, RBC 5.04, Hgb 15.4, Hct 45.9, MCV 91.1, MCH 30.6, MCHC 33.6, RDW Std Deviation 42.5, RDW Coeff of Ben 12.8, Plt Count 247, MPV 11.3, Immature Gran % (Auto) 0.500, Neut % (Auto) 65.3, Lymph % (Auto) 23.2, [place] % (Auto) 8.4, Eos % (Auto) 2.3, Baso % (Auto) 0.3, Absolute Neuts (auto) 6.2, Absolute Lymphs (auto) 2.21, Nucleated RBC % 0 01/01/21 05:56: Sodium 137, Potassium 3.6, Chloride 106, Carbon Dioxide 27.0, Anion Gap 4 L, BUN 13, Creatinine 0.98, Estim Creat Clear Calc 96.75, Est GFR (MDRD) Af Amer 116, Est GFR (MDRD) Non-Af 96, BUN/Creatinine Ratio 13.3, Glucose 101, Calcium 9.0, Phosphorus 3.9, Magnesium 2.6, Total Bilirubin 0.80, AST 51 H, ALT 130 H, Alkaline Phosphatase 54, Total Protein 8.2, Albumin 4.0, Globulin 4.2, Albumin/Globulin Ratio 1.0, Triglycerides 152, Cholesterol 235 H, LDL Cholesterol 169 H, VLDL Cholesterol 30, HDL Cholesterol 36 L, TSH 3.53 Radiography Diagnostic Testing: Radiology Impression Chest X-Ray 12/31/20 15:45 IMPRESSION: Normal x-ray examination of the chest. Electronically Signed: Pawel Beckman MD at 16:01 EDT Tel , Service support , D/C Instructions Discharge Diet: No restrictions Weight Bearing Status: Weight bearing as tolerated Call your doctor if you observe: Fever of 101 or Higher, Numbness or Tingling, S hortness of breath, Dizziness, Chest pain, Increased palpitations (irregular heartbeat) and Calf discomfort Please Follow Up With: Primary care provider When: Within the next two weeks. Meaningful Use Info Meaningful Use Diagnoses (Choose all that apply): None applicable Discharge Plan Admission Admit Date/Time: 12/31/20 16:41 Attending Provider: Ramon Bundy Primary Care Provider: Temi An Instructions Patient Instructions: ED Chest Pain, Noncardiac Discharge Orders/Prescriptions Prescriptions: Continued tamsulosin 0.4 mg capsule 0.4 mg PO DAILY RF: 0 omeprazole magnesium [Prilosec OTC] 20 mg Tablet,Delayed Release (Dr/Ec) 20 mg PO QHS RF: 0 Zyrtec 10 mg Capsule 10 mg PO DAILY RF: 0 levocetirizine [Xyzal] 5 mg Tablet 5 mg PO QPM RF: 0 Referrals / Follow Up: Temi An MD [Primary Care Provider] - Within 2 Weeks Disposition Disposition (needs filled in before D/C Order can be placed): Home, Self Care Documented by User: Dr. Ramon Bundy DO 01/01/21 17:09 Providers Date of Admission: 12/31/20 Reason For Visit: CHEST PAIN Medications at Discharge Home Medications Zyrtec 10 mg PO DAILY 12/31/20 levocetirizine [Xyzal] 5 mg PO QPM 12/31/20 omeprazole magnesium [Prilosec OTC] 20 mg PO QHS 12/31/20 tamsulosin 0.4 mg PO DAILY 12/31/20 Hospital Course Summary of Care Provided Hospital Course: Patient seen and examined independently. Data and vitals rev iewed. I agree with the above note by the physician clothing sales assistant. 30-year-old presents with chest pain. Patient underwent a cardiac work-up that came back unremarkable. Patient did have simple elevated blood pressure the patient to follow-up with his PCP for further management. Physical Exam Const alert HEENT normocephalic Resp normal respiratory effort, no retractions, no use of accessory muscles and clear to auscultation bilaterally Cardio regular rate, regular rhythm, S1 normal heart sound and S2 normal heart sound ABG / Lab / Microbiology Data Result Diagrams: 01/01/21 05:56 01/01/21 05:56 Discharge Plan Admission Admit Date/Time: 12/31/20 16:41 Attending Provider: Ramon Bundy Primary Care Provider: Temi An Instructions Patient Instructions: ED Chest Pain, Noncardiac Discharge Orders/Prescriptions Prescriptions: Continued tamsulosin 0.4 mg capsule 0.4 mg PO DAILY RF: 0 omeprazole magnesium [Prilosec OTC] 20 mg Tablet,Delayed Release (Dr/Ec) 20 mg PO QHS RF: 0 Zyrtec 10 mg Capsule 10 mg PO DAILY RF: 0 levocetirizine [Xyzal] 5 mg Tablet 5 mg PO QPM RF: 0 Referrals / Follow Up: Temi An MD [Primary Care Provider] - Within 2 Weeks Disposition Disposition (needs filled in before D/C Order can be placed): Home, Self Care Charges/Coding Visit Charges OBSV E&M: 99723 Observation care discharge
--- NOTE | 2021-01-01 16:14 | STRESSREP ---
Stress Test Report Date: 01/01/2021 Procedure: Exercise tolerance test/imaging study Indications: Chest pain Consent: Per the patient Procedure: The patient exercised on a Rian protocol for 9 minutes achieving a peak heart rate of 169 bpm (88% predicted maximal heart rate) with a peak blood pressure 172/78 mmHg and a peak MET capacity of 10.1 METs. The baseline ECG demonstrated normal sinus rhythm. The peak exercise ECG demonstrated no significant ischemic changes. EKG during recovery revealed no significant ischemic changes [There were no cardiac dysrhythmias pretest, during exercise, or recovery]. The functional capacity was considered normal for age. There was [no complaint of chest discomfort during exercise or recovery]. The examination was discontinued secondary to dizziness, fatigue. Patient had normal blood pressure response to exercise. Impression: 1. Technically adequate (percent predicted maximal heart rate greater than 85%) exercise tolerance test 2. Stress test is negative for exercise-induced EKG changes of ischemia 3. The test test is negative for exercise-induced chest pain 4. Functional capacity is normal for age 5. Nuclear images pending Myocardial perfusion imaging study: Technique: The patient was injected with 13.8 mCi of technetium 99m Cardiolite and subsequently rest SPECT Cardiolite nuclear imaging was obtained in the horizontal long, vertical long, and short axis views. The patient exercised on a Rian protocol. Please see above for details. The patient was injected with 41 mCi of technetium 99m Cardiolite and subsequently stress SPECT Cardiolite nuclear imaging was obtained in the horizontal long, vertical long, and short axis views. A gated Cardiolite study at peak stress was obtained. Interpretation: Rest and stress SPECT Cardiolite nuclear imaging status post realignment, normalization, and attenuation correction, demonstrates normal myocardial radioisotope uptake. The gated Cardiolite study demonstrates no significant regional wall motion normalities. The reported LVEF is 64%. Impression: 1. There is no evidence of significant ischemia or infarction. 2. The gated Cardiolite study reports an LVEF of 64%. This note was generated with [employer] software. It may contain incorrect words, spelling, and punctuation that were not noted in checking the note before signing.
== END 2021-01-01 11:07 | disposition home or self-care (01) ==
LOC: ED 16:46 → PCU 16:53
PROVIDERS: Admitting Provider Internal Medicine; Emergency Provider Emergency Medicine; PCP Internal Medicine
DX: R07.89 Other chest pain (principal); R06.02 Shortness of breath; R94.31 Abnormal electrocardiogram [ECG] [EKG]; R03.0 Elevated blood-pressure reading, without diagnosis of hypertension; Z79.899 Other long term (current) drug therapy
CPT/HCPCS: 36415; 71045; 78452; 80048; 80053; 80061; 83036; 83735; 84100; 84443; 84484; 85025; 85379; 85652; 93005; 93017; 93306; 96360; 99218; 99285; A9500; J7030; A4216; G0378

== ENCOUNTER → 2021-01-10 16:10 | Outpatient (CLI) | payer MEDICAID, SELFPAY | PROVIDERS: PCP Internal Medicine; Visit Provider Family Medicine | DX: Z03.818 Encounter for observation for suspected exposure to other biological agents ruled out (principal) | CPT/HCPCS: 87635; U0005; U0003 ==

== ENCOUNTER 2022-07-16 20:34 | Emergency (ER) | payer OTHER, MEDICAID, SELFPAY ==
[2022-07-16 20:35] VITALS: BP 147/101; PULSE 100; RESP 16; TEMP 37.4; O2SAT 99; BMI 33.5
--- NOTE | 2022-07-16 21:01 | EDS_ITS ---
HPI History of Present Illness Chief Complaint: Upper Extremity Injury Informant: patient Narrative Narrative: Patient presents for evaluation left thumb injury occurring at work 6:30 PM. Pushing a cart to do dishes when it tipped over pants falling directly on his thumb. Pain worse with movement. No medications taken. He was sent here for evaluation. He declines wanting any medications. [facility] Medical History Abnormal ECG Elevated blood pressure reading Kidney stones Home Medications cetirizine 10 mg capsule (Zyrtec) 10 mg PO DAILY 12/31/20 [History Last Taken Unknown] levocetirizine 5 mg tablet (Xyzal) 5 mg PO QPM 12/31/20 [History Last Taken 12/30/20] omeprazole magnesium 20 mg tablet,delayed release (Prilosec OTC) 20 mg PO QHS 12/31/20 [History Last Taken 12/30/20] tamsulosin 0.4 mg capsule 0.4 mg PO DAILY 12/31/20 [History Last Taken Unknown] Allergy/AdvReac Type Severity Reaction Status Date / Time No Known Allergies Allergy Verified 07/16/22 20:37 Family History Uncle Heart disease Had heart attack at age 39 Other Diabetes Hypertension Social History current occupational status: employed Smoking Status: Never smoker second hand exposure: Yes alcohol intake: never substance use type: does not use ROS ROS ED Constitutional Constitutional ED: Denies chills, fever(s) or sweats Eyes Eyes: Denies change in vision ENT ENT ED: Denies dysphagia or sore throat Cardiovascular Cardiovascular: Denies chest pain, leg edema, palpitations or racing heartbeat Respiratory/Chest Respiratory/Chest: Denies cough, dyspnea or dyspnea on exertion Gastrointestinal Gastrointestinal: Denies abdominal pain, diarrhea, nausea or vomiting Genitourinary Genitourinary ED: Denies dysuria, hematuria or urinary frequency Musculoskeletal Musculoskeletal: Reports extremity pain and other Details: Left thumb pain ; Denies back pain or neck pain Integumentary Denies rash or wounds Neurologic Neurologic: Denies headache(s), paresthesias or weakness EXAM Physical Exam Const Vital Signs: 07/16/22 20:35 Temperature 99.3 F H Temperature Source Temporal Pulse Rate 100 Respiratory Rate 16 Blood Pressure 147/101 H Blood Pressure Mean 116 Pulse Ox 99 Oxygen Delivery Method Room Air Positive well nourished and well developed General Appearance ED: well developed and NAD HEENT Reports moist mucous membranes normocephalic and atraumatic Eyes PERRL, EOMs intact bilaterally and conjunctivae normal General Eye ED: Yes normal appearance of both eyes Neck no lymphadenopathy and supple General: Negative for tenderness Chest Wall Chest: Negative for tenderness Resp normal respiratory effort and normal air movement Effort and Inspection: symmetric chest movement; Negative for respiratory distress Cardio regular rate, regular rhythm and no murmurs Peripheral Pulses: pulses 2+ throughout GI normal to inspection, nondistended, normoactive bowel sounds and non-tender Palpation: Negative for guarding or rebound tenderness present Back/Spine no CVA tenderness and no thoracic nor lumbar tenderness Extremity normal to inspection Extremity Narrative: Left upper extremity: No elbow or wrist tenderness. No hand tenderness. Very minimal tenderness proximal phalanges of the thumb. There is no swelling or deformities. Negative varus and valgus at the MCP. Skin intact. Neuro vas intact distally. General Extremety ED: Negative for edema or tenderness General Extremity: Negative for edema Neuro oriented x3 and no sensory deficits noted Sensorium / Orientation: awake and alert Skin no rashes or lesions noted and no wounds MDM MDM MDM Narrative Medical decision making narrative: Interventions / MDM: Differential diagnosis: Left thumb contusion, finger sprain, Diagnosis considered but do not suspect: N/A My EKG interpretation: N/A Imaging independently reviewed and interpreted by myself: Left thumb x-ray 3 views: No fracture. External documents reviewed: N/A Test considered but not ordered:N/A ED course: Patient declines any medications clinically minimal symptoms x-ray negative. Work-related injury, he declines any work restrictions. He is given outpatient for occupational health as needed. He is cleared to go back to work. All questions were answered.. Re-evaluation: stable Disposition discussed with patient/family/significant other: Patient Case discussed with consulting clinician: N/A Discharge Plan Triage Chief Complaint: Upper Extremity Injury ED Provider: Oswald Gonzales Dx/Rx/DC Orders Clinical Impression: Contusion of left thumb Instructions: ED Finger Contusion Prescriptions: No Action tamsulosin 0.4 mg capsule 0.4 mg PO DAILY omeprazole magnesium [Prilosec OTC] 20 mg Tablet,Delayed Release (Dr/Ec) 20 mg PO QHS Zyrtec 10 mg Capsule 10 mg PO DAILY levocetirizine [Xyzal] 5 mg Tablet 5 mg PO QPM Primary Care Provider: Temi An Referrals: Temi An MD [Primary Care Provider] - [facility] - 1 Week if not improving Activity Restrictions/Additional Instructions: Left thumb x-ray negative. Tylenol as needed every 6 hours. Follow-up with occupational health. Disposition Disposition: Home, Self Care Discharge Date/Time: 07/16/22 22:03
--- NOTE | 2022-07-16 21:05 | RAD_ITS ---
EXAM: XR LEFT FINGERS, 2 OR MORE VIEWS CLINICAL INDICATION: injury -- thumb TECHNIQUE: Frontal, lateral and oblique views of the fingers of the left hand. This report was created using [employer] report generation technology. COMPARISON: None. FINDINGS: BONES/JOINTS: Unremarkable. No acute fracture. No subluxation. Normal alignment. Preservation of the joint space. No sclerotic or destructive changes observed. SOFT TISSUES: Unremarkable. No soft tissue swelling or gas. No radiopaque foreign body. RAD/Finger(s) Min 2 Views IMPRESSION: Negative x-rays of the visualized left fingers. Electronically Signed: Flavio Bhatt MD at 21:24 EDT ,
== END 2022-07-16 22:03 | disposition home or self-care (01) ==
PROVIDERS: Emergency Provider Emergency Medicine; PCP Internal Medicine; Visit Provider Emergency Medicine
DX: S60.012A Contusion of left thumb without damage to nail, initial encounter (principal); X58.XXXA Exposure to other specified factors, initial encounter
CPT/HCPCS: 73140; 99282